=== PATIENT | male | born 1940 | race Two or more races ===

== ENCOUNTER 2023-02-10 09:30 | Inpatient (IN) | payer OTHER ==
[~2023-02-10] VITALS: Ht 167.6 cm; Wt 72.6 kg
[2023-02-10] MEDS ORDERED: PLAVIX75 MG PO (11:19)
[2023-02-10] MEDS ORDERED: LIPITOR20 MG PO (11:20)
[2023-02-10] MEDS ORDERED: LIPO-FLAVONOID1 EACH PO (11:21)
[2023-02-10] MEDS ORDERED: CHLORTHALIDONE PO (11:21)
[2023-02-10] MEDS ORDERED: FOLIC ACID1 MG PO (11:21)
[2023-02-10] MEDS ORDERED: B12 ACTIVE1000 MCG PO (11:21)
[2023-02-13] MEDS ORDERED: CHLORTHALIDONE25 MG (08:52)
[2023-02-13 11:58] LABS: HEMATOCRIT 43.9 % (39.0-48.0); HEMOGLOBIN 15.1 g/dL (13-16.00); MEAN CORPUSCULAR HEMOGLOBIN 30.9 pg (27.00-32.0); MEAN CORPUSCULAR HGB CONC 34.3 g/dl (32.0-36.0); PLATELET COUNT 220 K/uL (150-450); RED BLOOD COUNT 4.88 M/uL (4.00-6.00); RED CELL DISTRIBUTION WIDTH 13.5 % (11.5-14.5)
[2023-02-13 12:27] LABS: ALBUMIN 3.7 gm/dL (3.4-5.0); CALCIUM 8.6 mg/dL (8.5-10.1); CREATININE SERUM 1.25 mg/dL (0.70-1.30); GFR 55.03; MAGNESIUM 1.9 mg/dL (1.8-2.4); PHOSPHOROUS 2.7 mg/dL (2.5-4.9); POTASSIUM 3.4 mEq/L (3.5-5.1)
[2023-02-14 07:48] LABS: HEMATOCRIT 43.7 % (39.0-48.0); HEMOGLOBIN 14.5 g/dL (13-16.00); MEAN CELL VOLUME 91.1 fL (80.0-100.00); MEAN CORPUSCULAR HEMOGLOBIN 30.2 pg (27.00-32.0); MEAN CORPUSCULAR HGB CONC 33.1 g/dl (32.0-36.0); PLATELET COUNT 227 K/uL (150-450); RED BLOOD COUNT 4.79 M/uL (4.00-6.00); RED CELL DISTRIBUTION WIDTH 13.3 % (11.5-14.5)
[2023-02-14] MEDS ORDERED: TRAM1TAB98 PO (08:02)
[2023-02-14] MEDS ORDERED: RECTICARE30 GM TOP (08:04)
[2023-02-14 08:44] LABS: ALBUMIN 3.3 gm/dL (3.4-5.0); CALCIUM 8.3 mg/dL (8.5-10.1); CREATININE SERUM 1.13 mg/dL (0.70-1.30); GFR 61.82; MAGNESIUM 1.8 mg/dL (1.8-2.4); POTASSIUM 3.38 mEq/L (3.5-5.1)
== END 2023-02-14 11:54 | disposition home or self-care (01) | DRG 349 ==
LOC: O/R 02-13 06:30 → SURG 02-13 09:30 → SURH 02-13 11:13
PROVIDERS: ADMIT Surgery; ATTEND Surgery
PROC: 3E0T3BZ Introduction of Anesthetic Agent into Peripheral Nerves and Plexi, Percutaneous Approach (ICD-10-PCS; 2023-02-13)
PROC: 0DBP7ZZ Excision of Rectum, Via Natural or Artificial Opening (ICD-10-PCS; principal; 2023-02-13 10:45)
DX: C20 Malignant neoplasm of rectum (principal); Z20.822 Contact with and (suspected) exposure to COVID-19
CPT/HCPCS: 0184T; 64430